=== PATIENT | male | born 1975 | race African-American/Black ===

== ENCOUNTER 2021-04-09 20:32 | Emergency (ER) | payer OTHER ==
[~2021-04-09] VITALS: Ht 187.9 cm; Wt 108.9 kg
== END 2021-04-09 23:10 | disposition home or self-care (01) ==
LOC: ED 20:32
DX: S50.01XA Contusion of right elbow, initial encounter (principal); M54.2 Cervicalgia; M62.838 Other muscle spasm; V89.2XXA Person injured in unspecified motor-vehicle accident, traffic, initial encounter; Y93.I9 Activity, other involving external motion; Y92.488 Other paved roadways as the place of occurrence of the external cause; Y99.8 Other external cause status